=== PATIENT | female | born 1965 ===

== ENCOUNTER → 2018-06-21 22:25 | Outpatient (REF) | payer OTHER, SELFPAY ==
[2018-06-21 23:57] LABS: Add Manual Diff / Slide Review NO; Basophils Percent Auto 0.6 % (0-2); Eosinophils Percent Auto 2.7 % (2-4); Lymphocytes Percent Auto 31.6 % (25-40); Mean Corpuscular HGB Conc 33.2 % (30-36); Mean Corpuscular Hemoglobin 29.6 PG (26-34); Mean Corpuscular Volume 89.1 fL (80-100); Monocytes Percent Auto 8.9 % (3-14); Neutrophils Absolute Auto 4400 /uL (3000-5900); Neutrophils Percent Auto 56.2 % (50-75); Platelet Count 213 X10^3/uL (150-400); Red Blood Cell Count 4.72 X10^6/uL (4.0-5.2); Red Cell Distribution Width 13.5 % (11.6-14.8); White Blood Cell Count 7.8 X10^3/uL (4.5-11.0)
[2018-06-22 01:36] LABS: Alanine Aminotransferase 69 IU/L (9-52); Albumin 4.3 g/dL (3.5-5.0); Albumin Globulin Ratio 1.8 (1.0-2.8); Alkaline Phosphatase 67 U/L (38-126); Aspartate Aminotransferase 41 IU/L (14-36); BUN Creatinine Ratio 17.1 (6-22); Bilirubin Total 0.3 mg/dL (0.2-1.3); Blood Urea Nitrogen 12 mg/dL (7-17); Calcium 10.1 mg/dL (8.4-10.2); Carbon Dioxide 30 mmol/L (22-32); Chloride 103 mmol/L (98-107); Estimated Glomerular Filt Rate > 60.0 mL/min (>60); Globulin 2.4 g/dL (1.7-4.1); Glucose 95 mg/dL (70-100); HEMOLYSIS < 15 (0-50); Potassium 4.2 mmol/L (3.4-5.1); Sodium 145 mmol/L (137-145); Total Protein 6.7 g/dL (6.3-8.2)
[2018-06-22 01:39] LABS: Monotest Negative (Negative)
[2018-06-22 01:41] LABS: C-Reactive Protein Quant < 0.5 mg/dL (<1.0)
[2018-06-22 01:47] LABS: Erythrocyte Sedimentation Rate 2 MM/HR (0-20)
== END ==
LOC: LAB 22:25
PROVIDERS: Visit Provider Internal Medicine Medical Oncology
DX: R53.83 Other fatigue (principal)
CPT/HCPCS: 36415; 80053; 85025; 85651; 86140; 86318